=== PATIENT | female | born 1955 | race Caucasian/White ===

== ENCOUNTER 2017-04-07 21:41 | Observation (INO) | payer OTHER ==
[~2017-04-07] VITALS: Ht 165.1 cm; Wt 85.1 kg
[2017-04-07] MEDS ORDERED: LISI-167 PO (23:13)
[2017-04-07] MEDS ORDERED: BECL8.7A6 INH (23:13)
[2017-04-07] MEDS ORDERED: RANI150T8 PO (23:13)
[2017-04-07] MEDS ORDERED: FEXO1TAB29 PO (23:13)
[2017-04-07] MEDS ORDERED: ALBU8.5H3 INH (23:13)
[2017-04-07] MEDS ORDERED: MONT4GRA PO (23:13)
[2017-04-07] MEDS ORDERED: MILK175T PO (23:13)
[2017-04-07] MEDS ORDERED: [UNRECOGNIZED DRUG - OTHER] PO (23:13)
[2017-04-07] MEDS ORDERED: ONDANSETRON ODT 4 MG ONE (23:15)
[2017-04-07] MEDS ORDERED: MAALOX/HYOSCYAMINE/LIDOCAINE 45 ML BOTTLE ONE (23:15)
[2017-04-07] MEDS ORDERED: FAMOTIDINE 20 MG TABLET ONE (23:15)
[2017-04-07] MEDS ORDERED: MAALOX/HYOSCYAMINE/LIDOCAINE 45 ML BOTTLE PO ONE (23:30)
[2017-04-07] MEDS ORDERED: FAMOTIDINE 20 MG TABLET PO ONE (23:30)
[2017-04-07] MEDS ORDERED: ONDANSETRON ODT 4 MG PO ONE (23:30)
[2017-04-07 23:52] LABS: BLOOD UREA NITROGEN 7 mg/dL (7-18)
[2017-04-07 23:55] LABS: ASPARTATE AMINO TRANSFERASE 18 U/L (15-37)
[2017-04-07 23:58] LABS: IS PT STATUS REG ER OR PRE ER? YES
[2017-04-08 02:07] VITALS: BP 123/80
[2017-04-08] MEDS ORDERED: SODIUM CHLORIDE 0.9% 1,000 ML IV SCH (02:48)
[2017-04-08] MEDS ORDERED: hydrALAzine 20 MG/ML, 1ML IVPush PRN (03:00)
[2017-04-08] MEDS ORDERED: NICOTINE 14MG/24 HR PATCH.TD24 TD SCH (03:00)
[2017-04-08] MEDS ORDERED: BISACODYL 10 MG SUPP PR PRN (03:00)
[2017-04-08] MEDS ORDERED: PROCHLORPERAZINE 5 MG/ML, 2ML IM PRN (03:00)
[2017-04-08] MEDS ORDERED: DOCUSATE 100 MG CAPSULE PO PRN (03:00)
[2017-04-08] MEDS ORDERED: ENOXAPARIN 40 MG/0.4 ML SQ SCH (03:00)
[2017-04-08] MEDS ORDERED: ALBUTEROL SULFATE 2.5 MG/3 ML NPPB PRN (03:00)
[2017-04-08] MEDS ORDERED: LORATADINE/PSE 5/120MG TAB.ER.12H PO PRN (03:00)
[2017-04-08] MEDS ORDERED: ACETAMINOPHEN 325 MG TABLET PO PRN (03:00)
[2017-04-08] MEDS ORDERED: POLYETHYLENE GLYCOL 17 GM PACKET PO PRN (03:00)
[2017-04-08] MEDS ORDERED: TRAZODONE 50MG TABLET PO PRN (03:00)
[2017-04-08 03:48] VITALS: BP 129/67
[2017-04-08 05:00] LABS: ASPARTATE AMINO TRANSFERASE 19 U/L (15-37); BLOOD UREA NITROGEN 6 mg/dL (7-18)
[2017-04-08 05:07] LABS: IS PT STATUS REG ER OR PRE ER? YES
[2017-04-08] MEDS ORDERED: REGADENOSON 0.4 MG/5 ML SYRINGE ONE (08:20)
[2017-04-08] MEDS ORDERED: [UNRECOGNIZED DRUG - OTHER] PO SCH (09:00)
[2017-04-08] MEDS ORDERED: FLUTICASONE FUROATE 100MCG/INH INH SCH (09:00)
[2017-04-08] MEDS ORDERED: LISINOPRIL 10 MG TABLET PO SCH (09:00)
[2017-04-08] MEDS ORDERED: MONTELUKAST 4 MG TAB.CHEW PO SCH (09:00)
[2017-04-08] MEDS ORDERED: HYDR12.53 PO (09:39)
[2017-04-08] MEDS: SUCRALFATE 1 GM/10 ML UDC PO SCH ×2 (11:00→11:13)
[2017-04-08 11:29] LABS: IS PT STATUS REG ER OR PRE ER? NO
[2017-04-08] MEDS ORDERED: IBUPROFEN 200 MG TABLET PO PRN (11:30)
[2017-04-08] MEDS ORDERED: LISI-167 PO (15:53)
[2017-04-08] MEDS ORDERED: POTASSIUM CHLORIDE 20 MEQ TAB.ER.PRT PO ONE (16:00)
== END 2017-04-08 17:05 | disposition home or self-care (01) ==
LOC: ED 23:59 → INTOOBSV 04-08 00:38 → EDIP 04-08 00:38 → CCU 04-08 01:44
PROVIDERS: ADMIT Internal Medicine; ATTEND Internal Medicine
DX: R07.89 Other chest pain (principal); E87.1 Hypo-osmolality and hyponatremia; I10 Essential (primary) hypertension; J45.909 Unspecified asthma, uncomplicated; K57.90 Diverticulosis of intestine, part unspecified, without perforation or abscess without bleeding; B19.20 Unspecified viral hepatitis C without hepatic coma; E86.9 Volume depletion, unspecified; F17.200 Nicotine dependence, unspecified, uncomplicated; F41.9 Anxiety disorder, unspecified; R79.89 Other specified abnormal findings of blood chemistry; Z90.710 Acquired absence of both cervix and uterus; Z82.49 Family history of ischemic heart disease and other diseases of the circulatory system
CPT/HCPCS: 36415; 71010; 78452; 80053; 83690; 83735; 84439; 84443; 84484; 85025; 85610; 85730; 87081; 93005; 93017; 94640; 96360; 96361; 99285; A9502; C9898; G0378; J2785; J7030; Q0162; J7613

== ENCOUNTER 2019-04-14 12:11 | Outpatient (CLI) | payer OTHER ==
[~2019-04-14 12:11] MED LIST: ALBU8.5H8 INH; BECL8.7A6 INH; FEXO1TAB29 PO; HYDR12.517 PO; LISI-167 PO; MILK175T PO; MONT4GRA PO; RANI150T23 PO; REGADENOSON 0.4 MG/5 ML SYRINGE ONE; [UNRECOGNIZED DRUG - OTHER] PO
== END 2019-04-14 23:59 | disposition home or self-care (01) ==
LOC: CFH 12:11
PROVIDERS: ATTEND Internal Medicine Cardiovascular Disease
DX: I08.3 Combined rheumatic disorders of mitral, aortic and tricuspid valves (principal); I10 Essential (primary) hypertension; Z82.49 Family history of ischemic heart disease and other diseases of the circulatory system
CPT/HCPCS: 78452; 93017; 93306; A9502; J2785